=== PATIENT | male | born 1980 | race African-American/Black ===

== ENCOUNTER 2016-12-07 23:15 | Emergency (ER) | payer MEDICARE | END 2016-12-08 00:45 | disposition home or self-care (01) | LOC: D.ER 23:15 | DX: S16.1XXA Strain of muscle, fascia and tendon at neck level, initial encounter (principal); V43.52XA Car driver injured in collision with other type car in traffic accident, initial encounter; Y93.89 Activity, other specified; Y92.410 Unspecified street and highway as the place of occurrence of the external cause; I10 Essential (primary) hypertension; F17.200 Nicotine dependence, unspecified, uncomplicated ==